=== PATIENT | female | born 1945 | race Two or more races ===

== ENCOUNTER 2022-08-27 07:43 | Outpatient (CLI) | payer OTHER | END 2022-08-27 07:53 | disposition home or self-care (01) | LOC: RX STUDY 07:43 | PROVIDERS: ATTEND Otolaryngology Plastic Surgery within the Head & Neck | DX: R09.89 Other specified symptoms and signs involving the circulatory and respiratory systems (principal) ==

== ENCOUNTER 2024-03-28 07:24 | Outpatient (CLI) | payer OTHER | END 2024-03-28 07:29 | disposition home or self-care (01) | LOC: RAD 07:24 | PROVIDERS: ATTEND Otolaryngology Plastic Surgery within the Head & Neck | DX: R13.10 Dysphagia, unspecified (principal) ==